=== PATIENT | female | born 1955 | race Caucasian/White ===

== ENCOUNTER 2023-01-18 14:09 | Outpatient (CLI) | payer MEDICARE | END 2023-01-18 14:10 | disposition home or self-care (01) | LOC: CSHRAD 14:09 | PROVIDERS: ATTEND Internal Medicine Rheumatology | DX: M75.101 Unspecified rotator cuff tear or rupture of right shoulder, not specified as traumatic (principal) ==

== ENCOUNTER 2023-03-04 08:19 | Outpatient (CLI) | payer MEDICARE ==
[2023-03-04] MEDS ORDERED: Iopamidol 370 76% 100 ML VIAL ONE (09:30)
== END 2023-03-04 08:20 | disposition home or self-care (01) ==
LOC: CSHCT 08:19
PROVIDERS: ATTEND Student in an Organized Health Care Education/Training Program
DX: R91.1 Solitary pulmonary nodule (principal)
CPT/HCPCS: 71260; 82565; Q9967

== ENCOUNTER 2023-04-01 12:00 | Outpatient (CLI) | payer MEDICARE | END 2023-04-01 12:01 | disposition home or self-care (01) | LOC: CSHMAMMO 12:00 | PROVIDERS: ATTEND Student in an Organized Health Care Education/Training Program | DX: Z12.31 Encounter for screening mammogram for malignant neoplasm of breast (principal) | CPT/HCPCS: 77063; 77067 ==

== ENCOUNTER 2023-12-09 13:12 | Outpatient (CLI) | payer MEDICARE | END 2023-12-09 13:13 | disposition home or self-care (01) | LOC: CSHMAMMO 13:12 | PROVIDERS: ATTEND Student in an Organized Health Care Education/Training Program | DX: Z13.820 Encounter for screening for osteoporosis (principal); M85.89 Other specified disorders of bone density and structure, multiple sites; Z78.0 Asymptomatic menopausal state | CPT/HCPCS: 77080 ==

== ENCOUNTER 2024-01-10 08:06 | Outpatient (CLI) | payer MEDICARE | END 2024-01-10 08:07 | disposition home or self-care (01) | LOC: CSHULT 08:06 | PROVIDERS: ATTEND Internal Medicine Rheumatology | DX: R74.8 Abnormal levels of other serum enzymes (principal); K76.0 Fatty (change of) liver, not elsewhere classified | CPT/HCPCS: 76705 ==